=== PATIENT | male | born 1990 | race African-American/Black ===

== ENCOUNTER 2018-11-01 14:44 | Emergency (ER) | payer OTHER ==
[~2018-11-01] VITALS: Ht 177.8 cm; Wt 81.7 kg
[2018-11-01] MEDS ORDERED: NORVASC2.5 MG PO ×2 (15:06→16:06)
[2018-11-01] MEDS ORDERED: LAMICTAL100 MG PO (15:06)
[2018-11-01 15:21] LABS: ABSOLUTE NEUTROPHILS 8.4 thou/uL (1.4-8.2); BASOPHILS 0.7 % (0.0-2.0); EOSINOPHILS 1.6 % (0.0-3.0); HEMATOCRIT 50.3 % (42.0-52.0); HEMOGLOBIN 16.9 gm/dL (14.0-18.0); LYMPHOCYTES 18.9 % (24.0-44.0); MCH 28.7 pg (26.0-34.0); MCHC 33.6 g/dL (28.0-37.0); MCV 85.5 fL (80.0-100.0); MONOCYTES 6.5 % (1.0-8.0); PLATELET COUNT 255 thou/uL (150-400); POLYS 72.3 % (36.0-66.0); RBC 5.89 mil/uL (4.50-6.00); RDW 14.5 % (10.5-14.5); WBC 11.6 thou/uL (4.0-11.0)
[2018-11-01 15:26] LABS: ANION GAP 12 mmol/L (7-16); BUN 11 mg/dL (7-18); CALCIUM 9.5 mg/dL (8.5-10.1); CHLORIDE 105 mmol/L (98-107); CO2 26 mmol/L (21-32); CREATININE 1.1 mg/dL (0.7-1.3); GLUCOSE 99 mg/dL (74-106); POTASSIUM 4.2 mmol/L (3.5-5.1)
[2018-11-01 15:28] LABS: SODIUM 143 mmol/L (136-145)
[2018-11-01 15:34] LABS: TROPONIN-I <0.06 ng/mL (<0.06)
[2018-11-01] MEDS ORDERED: NAPROSYN500 MG PO (16:07)
[2018-11-01 16:40] VITALS: BP 145/80
--- NOTE | 2018-11-02 00:02 | EKG ---
[place] [address] [facility] [place] [address] ELECTROCARDIOGRAM REPORT Name: ADAMSPRISCA Room #: DEP Gato#: [id number] ������������������ Admission: 11/01/18 ������������������ Attend Phys: Discharge: 11/01/18 ������������������ Date of : 88 Report #: [id number] ����������������������������������������������������������������� [id number] THIS REPORT FOR: //name// [facility] ED Test Date: 2018-11-01 Test Time: 14:55:02 Pat Name: PRISCA ADAMS Department: Room: Gender: Head Holder: : 1990 Requested By: Prisca Grissom Order Number: [id number] MD: Urban Medina Measurements Intervals [place] Rate: 81 P: 16 SD: 161 QRS: 78 QRSD: 89 T: 36 QT: 342 QTc: 397 Interpretive Statements Sinus rhythm early repol pattern No previous ECG available for comparison Electronically Signed On 11-02-2018 0:01:57 CDT by Urban Medina [email or web address] ��������������������������������������������� <ELECTRONICALLY SIGNED> ���������������������������������������� By: Urban Medina MD ��������������������������������������������� 11/02/18 0001 1455 1455 Urban Medina MD /EPI
== END 2018-11-01 16:42 | disposition home or self-care (01) ==
LOC: ER 14:44
PROVIDERS: Emergency Medicine
DX: R07.89 Other chest pain (principal); I10 Essential (primary) hypertension; Z90.49 Acquired absence of other specified parts of digestive tract; Z96.653 Presence of artificial knee joint, bilateral; F17.210 Nicotine dependence, cigarettes, uncomplicated